=== PATIENT | male | born 1990 | race Caucasian/White ===

== ENCOUNTER 2018-03-05 16:49 | Emergency (ER) | payer OTHER ==
[2018-03-05 17:18] VITALS: BP 148/92; PULSE 76; RESP 20; TEMP 97.7; O2SAT 99
== END 2018-03-05 17:50 | disposition home or self-care (01) | DRG 125 ==
LOC: ED 16:49
DX: H10.33 Unspecified acute conjunctivitis, bilateral (principal)
CPT/HCPCS: 99282